=== PATIENT | male | born 1965 | race Caucasian/White ===

== ENCOUNTER 2025-05-31 14:18 | Observation (INO) ==
[2025-05-31 14:57] LABS: Hematocrit (blood only) 42.8 % (42.0-52.0); Hemoglobin 14.5 g/dl (14.0-18.0); Immature Granulocytes # (auto) 0.02 K/uL (0.01-0.20); Immature Granulocytes % (auto) 0.4 %; Mean Corpuscular Hemoglobin 28.7 pg (25.0-34.0); Mean Corpuscular Volume 84.6 fL (80.0-100.0); Platelet Count 191 K/uL (130-400); RDW Standard Deviation 38.9 fL (36.4-46.3); Red Blood Count 5.06 M/uL (4.70-6.10); White Blood Count 5.22 K/ul (4.8-10.8)
--- NOTE | 2025-05-31 15:01 | XRay Report ---
XR chest 1V not portable CLINICAL HISTORY: Chest pain, nonspecific COMPARISON STUDY: 05/28/2025 FINDINGS: Heart size and pulmonary vasculature are normal. No consolidation or pleural effusion. No p neumothorax. IMPRESSION: No acute findings. ACT 112: Negative or not required by law. Electronically signed by: José Luis Jarrett M.D. 05/31/2025 3:00 PM
[2025-05-31 15:14] LABS: Alanine Aminotransferase 26.0 U/L (7-52); Albumin Globulin Ratio 1.6 (0.9-2); Alkaline Phosphatase 62.0 U/L (34-104); Anion Gap 6.0 (3-11); Bilirubin,Total 0.7 mg/dl (0.2-1.0); Blood Urea Nitrogen 22.0 mg/dl (6-23); Calcium 9.3 mg/dl (8.6-10.3); Carbon Dioxide 26.0 mmol/L (21-32); Chloride 106.0 mmol/L (98-107); Creatinine Clr Calc Pharmacy 109.8 ml/min; Globulin 2.9 gm/dl (2.5-4.0); Glucose 136.0 mg/dl (70-99(Fasting)); Potassium 3.8 mmol/L (3.5-5.1); Sodium 138.0 mmol/L (136-145); Total Protein 7.5 gm/dl (6.0-8.3)
[2025-05-31 15:28] LABS: INR 1.0 (0.9-1.1); Partial Thromboplastin Time 26 Seconds (21-31); Prothrombin Time 10.5 Seconds (9.0-12.0)
--- NOTE | 2025-05-31 16:12 | Emergency Department Note ---
Impression & Plan Chest pain, Dizziness ED Provider Note HISTORY OF PRESENT ILLNESS: Patient is a 59-year-old male presenting with chest pain and dizziness. Patient reports that at around 12 noon today he was feeling well and went out for a walk and suddenly became very dizzy and lightheaded and felt like he was going to pass out. He reports that he then developed some substernal chest pain. Denies any significant shortness of breath with this. No nausea or vomiting. He states he had the same episode happen 4 days ago. He states he was seen by his PCP few days ago and he had his blood pressure medication increased. He reports he is scheduled for nuclear stress test on 06/15/2025. He denies any DVT or PE history. Denies any history of cardiac stents. He states that he has been taking his blood pressure at home and has been very elevated. He is chest pain- free on assessment in the emergency department. He reports that "I cannot keep coming in for the symptoms I am not going to make it." ROS: as above PHYSICAL EXAM: Constitutional: Patient appears in no acute distress. HENT: Head: Normocephalic and atraumatic. Eyes: EOMI, PERRL Mouth/Throat: Mucous membranes moist. Neck: Trachea midline. Neck supple. Cardiovascular: RRR, No murmurs, rubs or gallops. Intact distal pulses. Pulmonary/Chest: No respiratory distress. Breath sounds clear and equal bilaterally. No wheezes or rales. Abdominal: Abdomen soft, no tenderness, rebound or guarding. Musculoskeletal: No edema, tenderness or deformity noted. Skin: Warm and dry. No rash, erythema, pallor or cyanosis Psychiatric: Appropriate mood and affect for situation. Neurological: Alert and keenly responsive. CN II-XII grossly intact, moving all extremities equally and fully. MDM: - Vitals signs showed hypertension - History obtained via patient. History as above. - Chronic conditions affecting care: HTN - Differential diagnoses include, but are not limited to: Acute coronary syndrome; pulmonary embolism; dissection; tension pneumothorax; esophageal rupture; pneumonia - Order placed for continuous cardiac monitoring. At this time, monitor showed rate of 61 bpm with normal sinus rhythm, per my interpretation. - External medical records reviewed. - EKG image interpreted by myself showed normal sinus rhythm. Rate 69 bpm. QT 388. No acute ischemic changes. - Laboratory workup interpreted by myself showed normal WBC; normal PT/INR; stable electrolytes; normal troponin - CXR image reviewed by myself is negative for pneumonia, per my interpretation. - Patient given 1L NS - Patient reports he does not feel comfortable going home, given the recurrent frequency of his chest pain and dizziness episodes. He does not feel that he can wait until June for his nuclear stress test. Discussed with the patient that I do feel that ACS is less likely, given that he has had multiple normal troponins over the last few days. However, will discuss case with hospitalist service. - Discussion was had with casework supervisor about patient's case and need for admission - Hospitalist, Dr. Rojas, consulted for admission at 16:22 - Patient admitted to [facility]ist service for further evaluation and management. ASSESSMENT AND PLAN: Diagnosis: Chest pain; dizziness Plan: Admit Past Med/Surg History Problem List (Updated 05/31/25 @ 16:33 by Mabel Abraham MD) Dizziness (Acute) Chest pain (Acute) Hypertension (Acute) Anterior chest wall pain (Acute) HTN (hypertension) Hx of epistaxis Social History (Updated 09/17/18 @ 11:17 by Millie Martin) Smoking Status: Never smoker Preferred Language: Egyptian Communication Ability: Effective Visual Impairment: No Limitations Hearing Ability: Normal Feels Safe at Home: Yes Allergies Allergies Allergy/AdvReac Type Severity Reaction Status Date / Time Penicillins Allergy Mild Rash Verified 05/31/25 16:17 Home Meds Home Medications Medication Instructions Recorded Confirmed methocarbamol 500 mg tablet 500 mg PO BID PRN Spasms ##0 05/09/08 05/31/25 calcium carbonate (Tums) 200 mg PO QID PRN Acid Reflux 05/28/25 05/31/25 ferrous sulfate 324 mg (65 mg 324 mg PO DAILY 05/28/25 05/31/25 iron) tablet,delayed release lisinopril 20 mg tablet 20 mg PO DAILY 05/31/25 05/31/25 lorazepam 1 mg tablet 1 mg PO DIRECTED PRN Anxiety 05/31/25 05/31/25 sertraline 50 mg tablet 25 mg PO DAILY 05/31/25 05/31/25 sucralfate 1 gram tablet (Carafate) 1 g PO ACHS PRN ABD DISCOMFORT 05/31/25 05/31/25 NEEDED Results & Data (ED) Vital Signs Vital Signs - 24 hr 05/31/25 14:23 05/31/25 15:23 05/31/25 15:23 Temperature 36.6 C Temperature Source Temporal Artery Scan Pulse Rate 79 Pulse Rate [Apical] 63 Respiratory Rate 18 18 Respiratory Effort / Characteristics Non-Labored Spontaneous Non-Labored Spontaneous Respiratory Depth Normal Normal Respiratory Pattern Regular Regular Blood Pressure 197/91 H Blood Pressure [Right Arm] 169/103 H Blood Pressure Mean 126 Blood Pressure Mean [Right Arm] 125 Pulse Oximetry 96 95 94 Oxygen Delivery Method Room Air Room Air Room Air Sepsis Recent Fever Within 48 Hours No Sepsis New/Unexplained Change in Mental Status N/A Sepsis Action Taken by Nursing No Action Required 05/31/25 15:23 05/31/25 16:11 Temperature Temperature Source Pulse Rate 61 Pulse Rate [Apical] Respiratory Rate Respiratory Effort / Characteristics Respiratory Depth Respiratory Pattern Blood Pressure Blood Pressure [Right Arm] Blood Pressure Mean Blood Pressure Mean [Right Arm] Pulse Oximetry 94 Oxygen Delivery Method Room Air Sepsis Recent Fever Within 48 Hours Sepsis New/Unexplained Change in Mental Status Sepsis Action Taken by Nursing Laboratory Data 05/31/25 14:33 05/31/25 14:33 Lab Results 05/31/25 Range/Units 14:33 WBC 5.22 (4.8-10.8) K/ul RBC 5.06 (4.70-6.10) M/uL Hgb 14.5 (14.0-18.0) g/dl Hct 42.8 (42.0-52.0) % MCV 84.6 (80.0-100.0) fL MCH 28.7 (25.0-34.0) pg MCHC 33.9 (32.0-36.0) g/dL RDW Std Deviation 38.9 (36.4-46.3) fL RDW Coeff of Leonie 12.7 (11.5-14.5) % Plt Count 191 (130-400) K/uL MPV 10.8 (9.4-12.4) fL Immature Gran % (Auto) 0.4 % Neut % (Auto) 68.5 % Lymph % (Auto) 22.2 % Trigg % (Auto) 5.6 % Eos % (Auto) 2.9 % Baso % (Auto) 0.4 % Neut # (Auto) 3.58 (1.40-6.50) K/uL Lymph # (Auto) 1.16 L (1.20-3.40) K/uL Trigg # (Auto) 0.29 (0.11-0.59) K/uL Eos # (Auto) 0.15 (0.00-0.50) K/uL Baso # (Auto) 0.02 (0.00-0.20) K/uL Immature Gran # (Auto) 0.02 (0.01-0.20) K/uL PT 10.5 (9.0-12.0) Seconds INR 1.0 (0.9-1.1) APTT 26 (21-31) Seconds PTT Ratio 1.0 Sodium 138 (136-145) mmol/L Potassium 3.8 (3.5-5.1) mmol/L Chloride 106 (98-107) mmol/L Carbon Dioxide 26 (21-32) mmol/L Anion Gap 6 (3-11) BUN 22 (6-23) mg/dl Creatinine 0.99 (0.6-1.4) mg/dl Est Cr Clr Drug Dosing 109.8 ml/min eGFR 88.30 BUN/Creatinine Ratio 22.2 H (10-20) Glucose 136 H (70-99(Fasting)) mg/dl Calcium 9.3 (8.6-10.3) mg/dl Total Bilirubin 0.7 (0.2-1.0) mg/dl AST 20 (13-39) U/L ALT 26 (7-52) U/L Alkaline Phosphatase 62 (34-104) U/L Troponin I High Sens 3.9 (0-20) pg/ml Total Protein 7.5 (6.0-8.3) gm/dl Albumin 4.6 (3.4-5.0) gm/dl Globulin 2.9 (2.5-4.0) gm/dl Albumin/Globulin Ratio 1.6 (0.9-2) Imaging Data Radiologist's Impression: Chest X-Ray 05/31/25 14:26 XR chest 1V not portable CLINICAL HISTORY: Chest pain, nonspecific COMPARISON STUDY: 05/28/2025 FINDINGS: Heart size and pulmonary vasculature are normal. No consolidation or pleural effusion. No pneumothorax. IMPRESSION: No acute findings. ACT 112: Negative or not required by law. Electronically signed by: José Luis Jarrett M.D. 05/31/2025 3:00 PM Discharge Plan Visit Data Chief Complaint: Chest Pain Stated Complaint: CHEST TIGHTNESS, DIZZY ED Provider: Mabel Abraham Discharge Problem: Chest pain, Dizziness Condition: Fair Forms Stand Alone Forms: [facility] Prescriptions Prescriptions: No Action methocarbamol 500 mg Tablet 500 mg PO BID PRN (Reason: Spasms) Qty: 0 calcium carbonate [Tums] 200 mg calcium (500 mg) Tablet,Chewable 200 mg PO QID PRN (Reason: Acid Reflux) ferrous sulfate 324 mg (65 mg iron) Tablet,Delayed Release (Dr/Ec) 324 mg PO DAILY Rx Instructions: PER PT "NOT EVERY DAY". sucralfate [Carafate] 1 gram Tablet 1 g PO ACHS PRN (Reason: ABD DISCOMFORT NEEDED) lisinopril 20 mg tablet 20 mg PO DAILY lorazepam 1 mg Tablet 1 mg PO DIRECTED PRN (Reason: Anxiety) sertraline 50 mg tablet 25 mg PO DAILY Referrals Referrals: Brendan De Leon MD [Primary Care Provider] -
[2025-05-31 17:04] LABS: Cholesterol 199.0 mg/dl (0-200); HDL Cholesterol 54.0 mg/dl; Triglycerides 145.0 mg/dl (0-150)
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
[2025-05-31] MEDS ORDERED: ACETAMINOPHEN 325 MG TAB PO PRN (18:05)
[2025-05-31] MEDS ORDERED: POLYETHYLENE (MIRALAX) 17 GM PACK PO PRN (18:05)
[2025-05-31] MEDS ORDERED: ONDANSETRON INJ 2 MG/ML 2 ML VIAL IV PRN (18:05)
[2025-05-31] MEDS: SODIUM CHLORIDE 0.9% 1,000 ML IV ONE (18:17)
[2025-05-31 18:34] LABS: Hemoglobin A1C 5.6 % (4.5-5.6)
[2025-05-31 18:50] LABS: Thyroid Stimulating Hormone 1.739 uIu/ml (0.300-4.500)
[2025-05-31] MEDS ORDERED: hydroCHLOROthiazide 25 MG TAB PO SCH (20:00)
[2025-05-31] MEDS: DICLOFENAC SOD 1% GEL 100 GM TUBE EXT SCH (22:23)
--- NOTE | 2025-05-31 22:50 | XRay Report ---
Exam(s): XR C SPINE EXAM: XR Cervical Spine, 2 or 3 Views CLINICAL HISTORY: Reason for exam: back pain. TECHNIQUE: Frontal and lateral views of the cervical spine. COMPARISON: No relevant prior studies available. FINDINGS: Vertebrae: Slight narrowing and osteophytosis of the atlantodental joint. The odontoid process is intact. The lateral masses of C1 are anatomically aligned. Mild early degenerative changes consisting of osteophyte formation at the C4-5 and C5-6 levels. No definite fracture. Disc spaces: No acute findings. No significant narrowing. Soft tissues: Unremarkable. IMPRESSION: Mild early degenerative changes consisting of osteophyte formation at the C4-5 and C5-6 levels. No acute fracture or subluxation is seen. Electronically signed by: Arnie Coughlin MD 05/31/25 22:49 PM
--- NOTE | 2025-05-31 22:52 | XRay Report ---
Exam(s): XR SHOULDER, 2+ views EXAM: XR Right Shoulder Complete, 2 or More Views CLINICAL HISTORY: Reason for exam: right shoulder pain. TECHNIQUE: Two or more views of the right shoulder. COMPARISON: No relevant prior studies available. FINDINGS: Bones/joints: Minimal early osteophyte formation involving the glenohumeral and acromioclavicular joints. No acute fracture. No dislocation. Soft tissues: Unremarkable. IMPRESSION: Minimal early osteophyte formation involving the glenohumeral and acromioclavicular joints. This is consistent with early osteoarthritic changes. No acute fracture or dislocation is seen. Electronically signed by: Arnie Coughlin MD 05/31/25 22:51 PM
--- NOTE | 2025-05-31 22:52 | XRay Report ---
Exam(s): XR LEFT SHOULDER, 2+ views EXAM: XR Left Shoulder Complete, 2 or More Views CLINICAL HISTORY: Reason for exam: left shoulder pain. TECHNIQUE: Two or more views of the left shoulder. COMPARISON: No relevant prior studies available. FINDINGS: Bones/joints: Minimal early osteophyte formation involving the acromioclavicular and glenohumeral joints consistent with early osteoarthritic changes. No acute fracture. No dislocation. Soft tissues: Unremarkable. IMPRESSION: Minimal early osteophyte formation involving the acromioclavicular and glenohumeral joints consistent with early osteoarthritic changes. Otherwise unremarkable left shoulder. No fracture or dislocation. Electronically signed by: Arnie Coughlin MD 05/31/25 22:50 PM
[2025-06-01 07:51] LABS: Hematocrit (blood only) 39.5 % (42.0-52.0); Hemoglobin 13.5 g/dl (14.0-18.0); Mean Corpuscular Hemoglobin 28.8 pg (25.0-34.0); Mean Corpuscular Volume 84.4 fL (80.0-100.0); Platelet Count 163 K/uL (130-400); RDW Standard Deviation 39.4 fL (36.4-46.3); Red Blood Count 4.68 M/uL (4.70-6.10); White Blood Count 4.81 K/ul (4.8-10.8)
[2025-06-01] MEDS: hydroCHLOROthiazide 25 MG TAB PO SCH (07:55)
[2025-06-01] MEDS: SERTRALINE HCL 50 MG TABLET PO SCH (07:55)
[2025-06-01 08:07] LABS: Anion Gap 5.0 (3-11); Blood Urea Nitrogen 22.0 mg/dl (6-23); Calcium 8.7 mg/dl (8.6-10.3); Carbon Dioxide 28.0 mmol/L (21-32); Chloride 107.0 mmol/L (98-107); Creatinine Clr Calc Pharmacy 102.3 ml/min; Glucose 99.0 mg/dl (70-99(Fasting)); Magnesium 2.1 mg/dl (1.7-2.4); Potassium 4.2 mmol/L (3.5-5.1); Sodium 140.0 mmol/L (136-145)
--- NOTE | 2025-06-01 10:19 | Cardiology Consultation ---
Date of Consultation June 01, 2025 Assessment & Plan (1) Atypical chest pain: (2) Uncontrolled hypertension: (3) Hypertension: (4) Dyslipidemia, goal LDL below 70: Plan Atypical chest pain Reproducible with movement and palpation. EKG's without acute change High sensitivity troponin negative Echo with preserved LV systolic function, without regional wall motion abnormalities Telemetry benign. Chest x-ray clear General measures advised. Outpatient Cardiac CT with FFR as indicated. Hypertension Blood pressure markedly elevated on presentation (216/110), improved following titration of lisinopril as well as the addition of amlodipine Continue lisinopril 20 mg/day Continue amlodipine 5 mg/day Add thiazide if/when additional blood pressure control is needed Resting bradycardia precludes addition of beta-min/carvedilol Dyslipidemia. Target LDL cholesterol is less than 70 mg/dL noting aortic atherosclerosis Recommend rosuvastatin 10 mg/day Atherosclerotic changes in the aorta Add statin as above Consider addition of ASA 81 mg/day if able from a GI standpoint. Supervising Physician Co-Signing Physician Notes Attending Staff: Pt seen and exam with AP Staff Concur with observations and plans I take responsibility for care delivered by our Cardiology Team 59 yo man presenting with chest pain * Duration - 10 years * Shoulder blades - radiation to chest * Difficulty breathing * Chiropractic manipulations - improved * Pinching feeling -epigastric area * BP 216/110 on presentation * Rx with Lisinopril and Amlodipine * Troponin WNL x 4 * EKG: no Active Ischemia * ECHO - LVEF 60-65%, LVH (mild), No WMA, TR/MR (trace), No , No Pulmonary Hypertension, normal AoRoot * CT Chest as outp - No major coronary calcifications * LDL 127 * No DM * + Snoring/apnea observed by Hx: * Hypertension * Hyperlipidemia * Obesity * GERD * BPH * Anxiety Plans: * Chest Pain at present not consistent with ACS * No evidence of myocardial compromise by either Troponin or EKG * Patient, however, with multiple ACVD risks * Plans for outpt Coronary CTA * Consider Statin - Crestor 10 mg po per day * SBP now 135 mmHg * Continue Lisinopril 20 mg po per day * Continue Amlodipine 5 mg po per day * If needs additional BP mgmt - consider Chlorthalindone 25 mg po per day * Outpt Sleep Study * Check TSH * Follow up with [facility] for further testing * 61 min spent addressing challenges, educating and advancing daily plan of care * Please call back with any additional question Irwin Singh History of Present Illness Reason for Consultation: Exertional chest pain, ? stress test Requesting Physician: [facility], Dr. aDjuan Mora MD Attending Physician: [facility], Dr. Dajuan Mora MD History of Present Illness 59-year-old male referred for evaluation of chest discomfort. Information somewhat difficult to discern Chest discomfort has been ongoing for approximately 10 years Recently evaluated as an outpatient with observed hypertension, lisinopril dosing increased, sertraline prescribed Pain starts between the shoulder blades, sensation of feeling stuck with difficulty breathing Notes improvement/resolution immediately after chiropractic manipulation Discomfort predominantly reproducible with movements and palpation, occurring without rhyme or reason Occasional substernal/epigastric pinch followed by body tingling, head feeling fuzzy, elevated blood pressure readings Blood pressure significantly elevated on presentation, to 216/110 Lisinopril increased further, amlodipine added this admission EKGs without acute change High-sensitivity troponin negative, 4.7 then 5.3 on May 28, 2025, 3.9 then 3.5 on May 31, 2025 Resting echocardiography notable for sinus bradycardia, mild concentric LVH, EF 60 to 65%. Trace mitral and tricuspid regurgitation. Doppler findings did not suggest pulmonary hypertension. Aortic root normal in size. No pericardial effusion observed. Admission chest x-ray without acute cardiopulmonary findings Outpatient CT scan of the chest without contrast on May 29, 2025 revealed mild mucosal thickening of the mid to distal esophagus suspicious for esophagitis, mild scarring in the lingula, degenerative changes in the spine, and mild atherosclerotic changes in aorta. Personal review of the CT shows no atherosclerosis in the epicardial coronary arteries LDL cholesterol 127 on May 29, 2025 present at bedside. Patient active 7 days/week. 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 Chronic smokeless tobacco user until 2 weeks ago. No significant alcohol. No illegal drug use. . 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 Family History: Mother at 78 with female cancer. Father committed suicide. Sister with GERD. Allergies Allergy/AdvReac Type Severity Reaction Status Date / Time Penicillins Allergy Mild Rash Verified 05/31/25 16:17 Home Medications Medication Instructions Recorded Confirmed Type methocarbamol 500 mg tablet 500 mg PO BID PRN Spasms ##0 05/09/08 05/31/25 History calcium carbonate (Tums) 200 mg PO QID PRN Acid Reflux 05/28/25 05/31/25 History ferrous sulfate 324 mg (65 mg 324 mg PO DAILY 05/28/25 05/31/25 History iron) tablet,delayed release lisinopril 20 mg tablet 20 mg PO DAILY 05/31/25 05/31/25 History lorazepam 1 mg tablet 1 mg PO DIRECTED PRN Anxiety 05/31/25 05/31/25 History sertraline 50 mg tablet 25 mg PO DAILY 05/31/25 05/31/25 History sucralfate 1 gram tablet (Carafate) 1 g PO ACHS PRN ABD DISCOMFORT 05/31/25 05/31/25 History NEEDED amlodipine 5 mg tablet 5 mg PO QAM 30 days #30 tabs 06/01/25 Rx hydrochlorothiazide 25 mg tablet 25 mg PO QAM 30 days #30 tabs 06/01/25 Rx pantoprazole 40 mg tablet,delayed 40 mg PO BID 28 days #56 tabs 06/01/25 Rx release Patient History Social History Smoking Status: Never smoker Tobacco Type: Smokeless Tobacco (Dip or Chew) Do You Dip or Chew Tobacco: No (quit 2 weeks ago); Hx Alcohol Use: No Hx Substance Use: No Preferred Language: Khmer Communication Ability: Effective Visual Impairment: No Limitations Hearing Ability: Normal Core Sticker Required: No Beliefs That Will Affect Care: None Current Living Situation: Spouse Other Information That Helps Us Care for You: No Feels Safe at Home: Yes Safety Concerns: Feels Safe At This Time Review of Systems Review of Systems: All systems reviewed & are unremarkable except as noted in HPI & below Complete Review of Systems is as stated above, negative, or noncontributory. Physical Exam Physical Exam: General: NAD. at bedside. HENT: Normocephalic. Atraumatic. Eyes: PER. Conjunctiva pink, sclera clear. Neck: No carotid bruits. No JVD. Heart: RRR. No murmur. No gallop Chest: Reproducible chest wall discomfort Lungs: Clear to auscultation. Abdomen: +BS. Soft. Nontender. No masses or organomegaly. Extremities: No clubbing, cyanosis, or edema. Limited neurological examination is without focal deficits. Pulses: Posterior tibial=2/4. Results & Data Vital Signs (Past 12 Hours) Vital Signs Temp Pulse Pulse Resp BP Pulse Ox O2 Del Method 06/01/25 07:50 36.6 C 58 L 18 135/79 95 Room Air 06/01/25 06:45 48 L 06/01/25 04:00 36.7 C 52 L 18 141/91 H 96 Room Air 05/31/25 23:25 37.0 C 68 18 158/80 H 95 Room Air Laboratory Results Cardiac Enzymes 05/31/25 05/31/25 Range/Units 14:33 16:03 AST 20 (13-39) U/L Troponin I High Sens 3.9 3.5 (0-20) pg/ml Coagulation 05/31/25 Range/Units 14:33 PT 10.5 (9.0-12.0) Seconds APTT 26 (21-31) Seconds Lipids 05/31/25 Range/Units 14:33 Triglycerides 145 (0-150) mg/dl Cholesterol 199 (0-200) mg/dl HDL Cholesterol 54 mg/dl Cholesterol/HDL Ratio 3.7 (0-5) CBC 05/31/25 06/01/25 Range/Units 14:33 07:26 WBC 5.22 4.81 (4.8-10.8) K/ul RBC 5.06 4.68 L (4.70-6.10) M/uL Hgb 14.5 13.5 L (14.0-18.0) g/dl Hct 42.8 39.5 L (42.0-52.0) % Plt Count 191 163 (130-400) K/uL Neut # (Auto) 3.58 (1.40-6.50) K/uL Lymph # (Auto) 1.16 L (1.20-3.40) K/uL [place] # (Auto) 0.29 (0.11-0.59) K/uL Eos # (Auto) 0.15 (0.00-0.50) K/uL Baso # (Auto) 0.02 (0.00-0.20) K/uL Comprehensive Metabolic Panel 05/31/25 06/01/25 Range/Units 14:33 07:26 Sodium 138 140 (136-145) mmol/L Potassium 3.8 4.2 (3.5-5.1) mmol/L Chloride 106 107 (98-107) mmol/L Carbon Dioxide 26 28 (21-32) mmol/L BUN 22 22 (6-23) mg/dl Creatinine 0.99 1.06 (0.6-1.4) mg/dl Glucose 136 H 99 (70-99(Fasting)) mg/dl Calcium 9.3 8.7 (8.6-10.3) mg/dl AST 20 (13-39) U/L ALT 26 (7-52) U/L Alkaline Phosphatase 62 (34-104) U/L Total Protein 7.5 (6.0-8.3) gm/dl Albumin 4.6 (3.4-5.0) gm/dl Intake and Output 05/31/25 06/01/25 06/01/25 22:59 06:59 14:59 Other: Other Intake Source NPO Weight 118.5 kg 118.2 kg Weight Measurement Method Built in Bedscale Standing Scale Diagnostic Findings Telemetry: Benign. Sinus throughout. No arrhythmias. Medications Administered Current Inpatient Medications Acetaminophen (Acetaminophen 325 Mg Tab) 650 mg PO Q4H PRN PRN Reason: pain/fever Stop: 06/30/25 18:04 Amlodipine Besylate (Amlodipine Besylate 5 Mg Tab) 5 mg PO QAM [facility] Stop: 06/30/25 18:14 Last Admin: 06/01/25 07:55 Dose: 5 mg Diclofenac Sodium (Diclofenac Sod 1% Gel 100 Gm Tube) 2 gm EXT Q12 [facility]; Protocol Stop: 06/30/25 20:59 Last Admin: 06/01/25 07:55 Dose: 2 gm Hydrochlorothiazide (Hydrochlorothiazide 25 Mg Tab) 25 mg PO QAM [facility] Stop: 07/01/25 08:59 Last Admin: 06/01/25 07:55 Dose: 25 mg Lisinopril (Lisinopril 20 Mg Tab) 20 mg PO DAILY [facility] Stop: 07/01/25 08:59 Last Admin: 06/01/25 07:55 Dose: 20 mg Ondansetron HCl (Ondansetron Inj 2 Mg/Ml 2 Ml Vial) 4 mg IV Q6H PRN PRN Reason: Nausea Stop: 06/30/25 18:04 Pantoprazole Sodium (Pantoprazole 40 Mg Tab) 40 mg PO BID [facility] Stop: 06/30/25 20:59 Last Admin: 06/01/25 07:55 Dose: 40 mg Polyethylene Glycol (Polyethylene (Miralax) 17 Gm Pack) 17 gm PO DAILY PRN PRN Reason: Constipation Stop: 06/30/25 18:04 Sertraline HCl (Sertraline Hcl 50 Mg Tablet) 25 mg PO DAILY [facility] Stop: 07/01/25 08:59 Last Admin: 06/01/25 07:55 Dose: 25 mg PG Care Time/CCT Total # of Minutes Spent Total Time Spent with Patient: Total time spent is greater than 50% in coordination of care (as documented) at patient's floor/unit and/or counseling patient: Coding Level of Care Code 54848 IN/OBS CONSULT LVL 5,80M Diagnoses Atypical chest pain R07.89 Uncontrolled hypertension I10 Hypertension I10 Hypertension type: unspecified Dyslipidemia, goal LDL below 70 E78.5 (3) Hypertension Hypertension type: unspecified Qualified Code(s): I10 - Essential (primary) hypertension
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
[2025-06-01] MEDS: SODIUM CHLORIDE 0.9% 500 ML IV SCH (18:05)
--- NOTE | 2025-06-02 05:11 | Electrocardiogram Report ---
Test Reason : Blood Pressure : */* mmHG Vent. Rate : 69 BPM Atrial Rate : 69 BPM P-R Int : 152 ms QRS Dur : 82 ms QT Int : 388 ms P-R-T Axes : 33 25 41 degrees QTcB Int : 415 ms Normal sinus rhythm Normal ECG When compared with ECG of 28-May-2025 06:49, No significant change was found Confirmed by Ciro Belcher ([id number]) on 06/02/2025 5:10:59 AM Referred By: Confirmed By: Ciro Belcher
[2025-06-02] MEDS ORDERED: CHLORTHALIDONE 25 MG TAB PO SCH (09:00)
--- NOTE | 2025-06-02 09:26 | History & Physical Bridge Note ---
Date of Service June 02, 2025 History & Physical Bridge Note I have examined the patient, reviewed the History & Physical and in the interval since the performance of the History & Physical I have noted the following changes of clinical significance: no changes noted. patient has some ongoing atypical chest pain. no sob. no nausea, vomiting, heartburn, abdominal pain. he has been NPO. - will plan to proceed with EGD later today. Supervising Physician Co-Signing Physician Notes I saw and examined this patient with our nurse practitioner and agree with her assessment and plan. Unexplained chest pain will proceed with endoscopy.
--- NOTE | 2025-06-02 10:11 | Anesthesiology Consultation ---
Date of Service June 02, 2025 Assessment & Plan Chart Review Chart Review: Acceptable Risk for Surgery and Patient NOT seen in Pre Admission Testing Consults Requested none History Surgery Operation Date: 06/02/25 16:45 Proposed Procedures p Esophagogastroduodenoscopy Dr. Scarlet Novak MD Height/Weight Height: 6 ft 1 in Weight: 118.2 kg Allergies Allergy/AdvReac Type Severity Reaction Status Date / Time Penicillins Allergy Mild Rash Verified 05/31/25 16:17 Medications Home Medications Medication Instructions Recorded Confirmed Last Taken methocarbamol 500 mg tablet 500 mg PO BID PRN Spasms ##0 05/09/08 05/31/25 05/28/25 calcium carbonate (Tums) 200 mg PO QID PRN Acid Reflux 05/28/25 05/31/25 05/28/25 ferrous sulfate 324 mg (65 mg 324 mg PO DAILY 05/28/25 05/31/25 05/28/25 iron) tablet,delayed release lisinopril 20 mg tablet 20 mg PO DAILY 05/31/25 05/31/25 05/31/25 lorazepam 1 mg tablet 1 mg PO DIRECTED PRN Anxiety 05/31/25 05/31/25 Unknown sertraline 50 mg tablet 25 mg PO DAILY 05/31/25 05/31/25 05/31/25 sucralfate 1 gram tablet (Carafate) 1 g PO ACHS PRN ABD DISCOMFORT 05/31/25 05/31/25 Unknown NEEDED amlodipine 5 mg tablet 5 mg PO QAM 30 days #30 tabs 06/01/25 Unknown pantoprazole 40 mg tablet,delayed 40 mg PO BID 28 days #56 tabs 06/01/25 Unknown release Active Medications Generic Name Dose Route Start Last Admin Trade Name Freq PRN Reason Stop Dose Admin Amlodipine Besylate 5 mg 05/31/25 18:15 06/02/25 08:22 Amlodipine Besylate 5 Mg Tab PO 06/30/25 18:14 5 mg QAM [facility] Administration Diclofenac Sodium 2 gm 05/31/25 21:00 06/02/25 08:21 Diclofenac Sod 1% Gel 100 Gm Tube EXT 06/30/25 20:59 Not Given Q12 [facility] Protocol Lisinopril 20 mg 06/01/25 09:00 06/02/25 08:22 Lisinopril 20 Mg Tab PO 07/01/25 08:59 20 mg DAILY [facility] Administration Pantoprazole Sodium 40 mg 05/31/25 21:00 06/02/25 08:22 Pantoprazole 40 Mg Tab PO 06/30/25 20:59 40 mg BID [facility] Administration Sertraline HCl 25 mg 06/01/25 09:00 06/02/25 08:21 Sertraline Hcl 50 Mg Tablet PO 07/01/25 08:59 25 mg DAILY [facility] Administration Social History Smoking Status: Never smoker Do You Dip or Chew Tobacco: No (quit 2 weeks ago) Hx Alcohol Use: No Hx Substance Use: No Physical Exam Vital Signs Last Vital Signs Temp 36.4 C L 06/02/25 07:40 Pulse 53 L 06/02/25 07:40 Resp 18 06/02/25 07:40 BP 132/83 06/02/25 07:40 Pulse Ox 96 06/02/25 07:40 O2 Del Method Room Air 06/02/25 07:40 Testing Laboratory Results 06/01/25 07:26 06/01/25 07:26 PT 10.5 Seconds (9.0-12.0) 05/31/25 14:33 INR 1.0 (0.9-1.1) 05/31/25 14:33 APTT 26 Seconds (21-31) 05/31/25 14:33 Hemoglobin A1c 5.6 % (4.5-5.6) 05/31/25 14:33
[2025-06-02] MEDS: SODIUM CHLORIDE 0.9% 500 ML IV ONE (11:44)
[2025-06-02] MEDS ORDERED: LIDOCAINE 2% 2 ML VIAL/AMP(20MG/ML) INFIL ONE (12:29)
[2025-06-02] MEDS ORDERED: PROPOFOL IV EMULSION 10 MG/ML 20 ML VIAL IV ONE (12:29)
--- NOTE | 2025-06-02 12:30 | GI REPORT ---
[facility] Patient: PATRICIA RICE : 1965 Sex at : Male Age: 59 Years Procedure: Upper GI endoscopy Date: 06/02/2025 Attending Physician: Pascual Novak MD Referring MD: Dajuan Mora Md Indications: - Atypical chest pain Medications: - Monitored Anesthesia Care Complications: - No immediate complications. Procedure: - Prior to the procedure, a History and Physical was performed, and patient medications and allergies were reviewed. The patient's tolerance of previous anesthesia was also reviewed. The risks and benefits of the procedure and the sedation options and risks were discussed with the patient. All questions were answered, and informed consent was obtained. [Anticoagulant Agents] [Days Prior to Procedure]. [ASA Grade]. After reviewing the risks and benefits, the patient was deemed in satisfactory condition to undergo the procedure. - The egd scope was introduced through the mouth and advanced to the second part of the duodenum. - The upper GI endoscopy was accomplished without difficulty. - The patient tolerated the procedure well. Findings: - The examined esophagus was normal. - Patchy mild inflammation characterized by erythema was found in the gastric antrum. Biopsies were taken with a cold forceps for Helicobacter pylori testing. - The examined duodenum was normal. Impression: - Normal esophagus. - Gastritis, characterized by erythema. Biopsied. - Normal examined duodenum. Recommendation: - Resume previous diet. - Patient has a contact number available for emergencies. The signs and symptoms of potential delayed complications were discussed with the patient. Return to normal activities tomorrow. Written discharge instructions were provided to the patient. Procedure Code(s): - 60592, Esophagogastroduodenoscopy, flexible, transoral; with biopsy, single or multiple Diagnosis Code(s): - K29.70, Gastritis, unspecified, without bleeding CPT(R) - 2023 copyright [employer]. All Rights Reserved. The CPT codes, CCI edits and ICD codes generated are intended as suggestions and were generated based on input data. These codes are preliminary and upon home care giver review may be revised to meet current compliance and payer requirements. The provider is responsible for the final determination of appropriate codes, and modifiers. Pascual Novak MD This document has been electronically signed. Note Initiated:06/02/2025 Note Completed:06/02/2025 12:29 PM [email or web address]\Results\[email or web address]\[id number]
--- NOTE | 2025-06-02 12:43 | Anesthesiology Progress Note ---
Date of Service June 02, 2025 Anesthesia Post Procedure Vital Signs Vital Signs: Temp Pulse Pulse Resp BP BP Pulse Ox 06/02/25 12:42 54 L 16 124/70 95 06/02/25 12:28 57 L 16 115/71 95 06/02/25 11:52 36.6 C 59 L 16 143/80 H 96 06/02/25 11:23 36.5 C 65 18 148/84 H 97 06/02/25 11:20 66 126/81 06/02/25 11:18 58 L 133/74 06/02/25 07:40 36.4 C L 53 L 18 132/83 96 06/02/25 07:17 47 L 06/02/25 03:31 36.6 C 56 L 16 115/71 96 06/01/25 23:15 36.7 C 61 18 153/86 H 96 06/01/25 22:30 06/01/25 21:53 57 L 06/01/25 19:39 36.8 C 71 18 149/79 H 95 06/01/25 15:53 36.7 C 70 18 159/88 H 95 06/01/25 13:11 77 O2 Del Method 06/02/25 12:42 Room Air 06/02/25 12:28 Room Air 06/02/25 11:52 Room Air 06/02/25 11:23 Room Air 06/02/25 11:20 06/02/25 11:18 06/02/25 07:40 Room Air 06/02/25 07:17 06/02/25 03:31 Room Air 06/01/25 23:15 Room Air 06/01/25 22:30 Room Air 06/01/25 21:53 06/01/25 19:39 Room Air 06/01/25 15:53 Room Air 06/01/25 13:11 Transfer of Care Handoff Completed per policy Notes Mental Status: alert / awake / arousable Patient Amnestic to Procedure: Yes Nausea / Vomiting: adequately controlled Pain: adequately controlled Airway Patency, RR, SpO2: stable & adequate BP & HR: stable & adequate Hydration State: stable & adequate Anesthetic Complications: no major complications apparent and Pt Satisfied with anesthetic care
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
== END 2025-06-02 18:08 | disposition home or self-care (01) ==
LOC: ED 14:18 → 2N 14:18 → SUATTDRO 16:32 → 2N 17:44